=== PATIENT | male | born 2005 | race Caucasian/White ===

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

== ENCOUNTER 2024-08-12 12:41 | Emergency (ER) | payer BC, MEDICAID ==
[2024-08-12] MEDS: Ibuprofen 800 MG Tab PO ONE (17:36)
== END 2024-08-12 17:42 | disposition home or self-care (01) ==
LOC: MW.ED 12:41
DX: S93.402A Sprain of unspecified ligament of left ankle, initial encounter (principal); Z75.8 Other problems related to medical facilities and other health care; X50.1XXA Overexertion from prolonged static or awkward postures, initial encounter; Y93.72 Activity, wrestling
CPT/HCPCS: 73610; 73630; 99283; A9270; 99282